=== PATIENT | female | born 1980 | race Caucasian/White ===

== ENCOUNTER 2020-01-08 13:10 | Emergency (ER) | payer OTHER, SELFPAY ==
[2020-01-08 13:57] VITALS: BP 111/59; PULSE 75; RESP 16; TEMP 37.4; O2SAT 98; BMI 28.7
--- NOTE | 2020-01-08 16:04 | ED.HEATRA ---
HPI - Head Injury General Chief complaint: Head Injury Stated complaint: HEAD INJ AT WORK Time Seen by Provider: 01/08/20 16:04 Source: patient Mode of arrival: ambulatory Limitations: no limitations History of Present Illness HPI Narrative: 39 yo female not on AC therapy struck head at work no LOC, the next day developed headache and photophobia with nausea - no fevers, no prior injuries or headaches, gradual onset MD Complaint: head injury Mechanism of Injury: work related injury Place: work Loss of Consciousness: no Location of injury: frontal Severity: moderate Quality: throbbing Radiation: none Other Injuries: none Context: other (no AC therapy) Associated symptoms: nausea Related Data Allergies Allergy/AdvReac Type Severity Reaction Status Date / Time Penicillins [PENICILLINS] Allergy Severe SHORTNESS Verified 01/08/20 14:07 OF BREATH Amoxicillin Allergy Unknown Shortness Uncoded 01/08/20 14:07 of Breath Penicillin Allergy Unknown Shortness Uncoded 01/08/20 14:07 of Breath Review of Systems Review of Systems: Constitutional : No Fever, No Chills, No Fatigue ENT/Mouth : No sore throat, No Rhinorrhea Eyes: No Eye Pain, No Swelling, No Redness, no change in vision Cardiovascular : No Chest Pain, No SOB, No Dyspnea on Exertion Respiratory : No Cough, No Sputum Gastrointestinal : + Nausea, + Vomiting, No Diarrhea, No abdominal Pain Genitourinary : No Dysuria, No Urinary Frequency Musculoskeletal : No joint pain, No Myalgias Skin : No Skin Lesions, No rash Neuro : No Weakness, No Numbness, No Dizziness, positive Headache Psych : No Anxiety/Panic, No Depression Heme/Lymph: No Bruising, No Bleeding,No Lymphadenopathy Endocrine : No Polyuria, No Polydipsia All other systems reviewed and are negative [facility] Past Medical History Medical History Left elbow fracture Patient denies significant medical history Psoriasiform dermatitis Right wrist injury Social History Social History (Updated 01/08/20 @ 16:12 by Sruthi Ortiz DO) Smoking Status: Never smoker Substance Use Type: Marijuana Substance Use Frequency: Occasionally Advance Directives: No Advance Directives Information Provided: No Physical Exam Vital Signs and I&O and Narrative: Vital Signs and I&O: Vital Signs Temp 99.4 F 01/08/20 13:57 Pulse 75 01/08/20 13:57 Resp 16 01/08/20 13:57 BP 111/59 L 01/08/20 13:57 Pulse Ox 98 01/08/20 13:57 Intake & Output 01/07/20 01/08/20 01/08/20 18:59 06:59 18:59 Weight 71.271 kg Body Mass Index 28.7 Appearance: Alert. Oriented X3. No acute distress. Eyes: Pupils equal, round and reactive to light. ENT: Pharynx normal. Neck: Normal inspection. Neck supple. no meningeal signs CVS: Normal heart rate and rhythm. Pulses normal. Respiratory: No respiratory distress. Breath sounds normal. Abdomen: Soft and nontender. Skin: Skin warm and dry. Normal skin color. Normal skin turgor. Extremities: No lower extremity edema. Normal range of motion Neuro: Oriented X 3. No motor deficit. No sensory deficit. Course Course Course Narrative: signed out to Dr. Pereira pending workup MDM - Head Injury MDM Narrative Medical decision making narrative: patient struck head at work at that time no LOC, no AC therapy, no fevers or meningeal symptoms this occurred on Tuesday but at this time c/o worsening pain since Tuesday started at rest, neurologically intact at this time will need CT head or injury, doubt [employer] infection, pain control, dispo per results and findings Discharge Plan Discharge Clinical Impression: Closed head injury Qualifiers: Encounter type: initial encounter Qualified Code(s): S09.90XA - Unspecified injury of head, initial encounter
--- NOTE | 2020-01-08 16:05 | CT_ITS ---
EXAMINATION: CT HEAD WITHOUT CONTRAST CLINICAL INFORMATION: Headache COMPARISON: None TECHNIQUE: Contiguous axial imaging was performed from the skull base to vertex without intravenous administration of contrast. This CT examination was performed using dose optimization techniques as appropriate, variously including the following: *Automated exposure control *Adjustment of mA and/or kV according to patient size (this includes techniques or standardized protocols for targeted exams where dose is matched to indication/reason for exam; i.e. extremities or head) *Use of iterative reconstruction technique DLP: 562 mGy-cm FINDINGS: There is no evidence of acute intracranial hemorrhage or territorial infarction. No abnormal mass effect or midline shift is seen. Higgins to white matter differentiation is well preserved. No extra-axial fluid collections are identified. The ventricles are normal in size. There is no abnormal attenuation within the brain parenchyma. The osseous structures and soft tissues are normal. There is near complete opacification of the sphenoid sinus. Mastoid air cells are well-developed and clear. No maxillary sinus air-fluid levels. Mild ethmoid mucosal thickening. IMPRESSION: No acute intracranial pathology. Sinus disease.
[2020-01-08] MEDS: 0.9 % Sodium Chloride 1,000 ML 999 ML IVCONT (16:35)
[2020-01-08] MEDS: Metoclopramide HCl 10 MG/2 ML VIAL 5 MG IVPUSH (16:36)
[2020-01-08] MEDS: Acetaminophen 325 MG TABLET 650 MG PO (16:36)
[2020-01-08] MEDS: diphenhydrAMINE HCL 50 MG/ML VIAL 25 MG IVPUSH (16:37)
[2020-01-08 16:44] LABS: MANUAL DIFF FLAG NO
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
[2020-01-08 16:49] LABS: Basophils Percent Auto 0.2 % (0-2); Eosinophils Absolute Auto 0.1 X10*3/uL (0.0-0.4); Eosinophils Percent Auto 0.7 % (0-4); Hematocrit 41.2 % (37-47); Hemoglobin 13.3 g/dl (12.0-16.0); Imm Gran Abs Auto 0.01 X10*3/uL (0.00-0.03); Imm Gran Pct Auto 0.1 % (0.0-0.4); Lymphocytes Percent Auto 23.9 % (20-40); Mean Corpuscular HGB Conc 32.3 g/dl (31.0-35.0); Mean Corpuscular Hemoglobin 27.3 pg (27.0-33.0); Mean Corpuscular Volume 84.4 fL (80-98); Mean Platelet Volume 10.5 fL (9.4-12.3); Monocytes Absolute Auto 0.6 X10*3/uL (0.1-1.2); Monocytes Percent Auto 6.5 % (2-11); Neutrophils Absolute Auto 5.8 X10*3/uL (2.0-8.3); Neutrophils Percent Auto 68.6 % (45-73); Platelet Count 274 X10*3/uL (160-400); Red Blood Count 4.88 X10*6/uL (4.20-5.50); Red Cell Distribution Width 12.8 % (11.0-16.0); White Blood Count 8.4 X10*3/uL (4.8-10.8)
[2020-01-08 16:51] LABS: Glucose Urine UA NEG (NEG); Leukocyte Esterase Urine NEG (NEG); Nitrite Urine NEG (NEG); PH 7.5 (5.0-8.0); Urine Blood NEG (NEG); Urine Ketones NEG (NEG); Urine Protein NEG (NEG-TRACE)
[2020-01-08 16:55] LABS: UPreg QC Valid YES; Urine Pregnancy NEGATIVE (NEGATIVE)
[2020-01-08 16:56] LABS: Appearance Urine CLEAR; Color Urine YELLOW
[2020-01-08 17:09] VITALS: BP 108/55; PULSE 63; RESP 14; TEMP 36.7; O2SAT 100
[2020-01-08 17:10] LABS: Anion Gap 12 (12-20); Blood Urea Nitrogen 15 mg/dL (9-16); Calcium 9.2 mg/dL (8.4-10.2); Carbon Dioxide 27 mmol/L (22-29); Chloride 105 mmol/L (96-108); Estimated Glomerular Filt Rate > 60; Glucose Random 102 mg/dL (60-115); Magnesium 2.1 mg/dL (1.6-2.6); Potassium 3.7 mmol/l (3.3-5.1); Sodium 140 mmol/L (135-145)
[2020-01-08 17:11] LABS: RBC Urine 0 /HPF (0); Squamous Epithelial Cell Urine 4+ /LPF; WBC Urine 0 /HPF (0-4)
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
== END 2020-01-08 19:12 | disposition home or self-care (01) ==
PROVIDERS: Emergency Medicine; Emergency Provider Internal Medicine
DX: S09.90XA Unspecified injury of head, initial encounter (principal); R11.0 Nausea; G44.309 Post-traumatic headache, unspecified, not intractable; Y29.XXXA Contact with blunt object, undetermined intent, initial encounter; Y93.9 Activity, unspecified; Y92.9 Unspecified place or not applicable; Y99.0 Civilian activity done for income or pay
CPT/HCPCS: 36415; 70450; 80048; 81001; 81003; 81025; 83735; 85025; 96361; 96372; 96374; 96375; 99284; J1200; J2765; J3030

== ENCOUNTER 2020-04-24 10:13 | Outpatient (REF) | payer OTHER, SELFPAY ==
[2020-04-24 10:45] LABS: MANUAL DIFF FLAG NO
[2020-04-24 10:49] LABS: Basophils Percent Auto 0.6 % (0-2); Eosinophils Absolute Auto 0.1 X10*3/uL (0.0-0.4); Eosinophils Percent Auto 1.3 % (0-4); Hematocrit 39.8 % (37-47); Hemoglobin 12.9 g/dl (12.0-16.0); Imm Gran Abs Auto 0.01 X10*3/uL (0.00-0.03); Imm Gran Pct Auto 0.1 % (0.0-0.4); Lymphocytes Absolute Auto 1.9 X10*3/uL (1.2-4.9); Lymphocytes Percent Auto 27.7 % (20-40); Mean Corpuscular HGB Conc 32.4 g/dl (31.0-35.0); Mean Corpuscular Hemoglobin 27.9 pg (27.0-33.0); Mean Platelet Volume 10.5 fL (9.4-12.3); Monocytes Absolute Auto 0.4 X10*3/uL (0.1-1.2); Neutrophils Absolute Auto 4.5 X10*3/uL (2.0-8.3); Neutrophils Percent Auto 64.3 % (45-73); Platelet Count 297 X10*3/uL (160-400); Red Blood Count 4.63 X10*6/uL (4.20-5.50); Red Cell Distribution Width 12.6 % (11.0-16.0)
[2020-04-24 11:21] LABS: Alanine Aminotransferase 109 U/L (0-31); Albumin Level 4.1 g/dL (3.5-5.0); Alkaline Phosphatase 83 U/L (39-117); Anion Gap 12 (12-20); Aspartate Amino Transferase 33 U/L (5-31); Bilirubin Total 0.3 mg/dL (0.0-1.0); Blood Urea Nitrogen 15 mg/dL (9-16); Calcium 9.4 mg/dL (8.4-10.2); Carbon Dioxide 27 mmol/L (22-29); Chloride 102 mmol/L (96-108); Estimated Glomerular Filt Rate > 60; Glucose Random 92 mg/dL (60-115); Potassium 4.1 mmol/l (3.3-5.1); Sodium 137 mmol/L (135-145); Total Protein 7.1 g/dL (6.5-8.0)
[2020-04-27 23:32] LABS: TS Negative Control Passed; TS Panel A 3; TS Panel B 1; TS Positive Control Passed; TSpotTB Negative (SeeBelow)
== END 2020-04-24 10:14 | disposition home or self-care (01) ==
LOC: HO.LAB 10:13
PROVIDERS: Visit Provider Physician Assistant Medical
DX: L40.0 Psoriasis vulgaris (principal)
CPT/HCPCS: 36415; 80053; 85025; 86481

== ENCOUNTER 2020-06-16 12:17 | Outpatient (REF) | payer OTHER, SELFPAY ==
[2020-06-16 13:12] LABS: MANUAL DIFF FLAG NO
[2020-06-16 13:18] LABS: Basophils Percent Auto 0.5 % (0-2); Eosinophils Absolute Auto 0.1 X10*3/uL (0.0-0.4); Eosinophils Percent Auto 1.5 % (0-4); Hematocrit 40.6 % (37-47); Imm Gran Abs Auto 0.01 X10*3/uL (0.00-0.03); Imm Gran Pct Auto 0.2 % (0.0-0.4); Lymphocytes Absolute Auto 1.7 X10*3/uL (1.2-4.9); Lymphocytes Percent Auto 27.6 % (20-40); Mean Corpuscular Hemoglobin 27.5 pg (27.0-33.0); Mean Corpuscular Volume 85.8 fL (80-98); Mean Platelet Volume 11.2 fL (9.4-12.3); Monocytes Absolute Auto 0.4 X10*3/uL (0.1-1.2); Monocytes Percent Auto 6.3 % (2-11); Neutrophils Absolute Auto 3.9 X10*3/uL (2.0-8.3); Neutrophils Percent Auto 63.9 % (45-73); Platelet Count 275 X10*3/uL (160-400); Red Blood Count 4.73 X10*6/uL (4.20-5.50); Red Cell Distribution Width 12.1 % (11.0-16.0); White Blood Count 6.2 X10*3/uL (4.8-10.8)
[2020-06-16 13:50] LABS: Alanine Aminotransferase 290 U/L (0-31); Albumin Level 4.1 g/dL (3.5-5.0); Alkaline Phosphatase 84 U/L (39-117); Anion Gap 11 (12-20); Aspartate Amino Transferase 203 U/L (5-31); Bilirubin Total 0.5 mg/dL (0.0-1.0); Blood Urea Nitrogen 12 mg/dL (9-16); Calcium 9.4 mg/dL (8.4-10.2); Carbon Dioxide 29 mmol/L (22-29); Chloride 104 mmol/L (96-108); Estimated Glomerular Filt Rate > 60; Glucose Random 87 mg/dL (60-115); Potassium 4.3 mmol/L (3.3-5.1); Sodium 140 mmol/L (135-145); Total Protein 7.1 g/dL (6.5-8.0)
[2020-06-16 14:09] LABS: TSH reflex Free T4 1.46 uIU/mL (0.32-4.0)
[2020-06-16 14:28] LABS: Erythrocyte Sedimentation Rate 18 MM/HR (0-20)
[2020-06-19 17:37] LABS: HIV RNA PCR Qn Copies <20 NOT DETECTED copies/mL (NOT DETECTED); HIV RNA PCR Qn Log Copies <1.30 NOT DETECTED (NOT DETECTED)
[2020-06-20 18:22] LABS: HCV Log PCR <1.18 NOT DETECTED Log IU/mL (NOT DETECTED); HepC Viral Load <15 NOT DETECTED IU/mL (NOT DETECTED)
== END 2020-06-16 12:18 | disposition home or self-care (01) ==
LOC: HO.LAB 12:17
PROVIDERS: PCP Family Medicine; Visit Provider Family Medicine
DX: R53.83 Other fatigue (principal); L40.9 Psoriasis, unspecified; Z86.19 Personal history of other infectious and parasitic diseases
CPT/HCPCS: 36415; 80053; 84443; 85025; 85652; 87522; 87536

== ENCOUNTER 2020-06-28 21:39 | Emergency (ER) | payer OTHER, SELFPAY ==
--- NOTE | ~2020-06-28 | XR_ITS ---
EXAMINATION: XR FOOT RT XR ANKLE RT CLINICAL INFORMATION: Pain and swelling COMPARISON: None. TECHNIQUE: 3 views of the right foot. 2 views of the right ankle FINDINGS: Ankle mortise intact. No fracture or dislocation seen. No soft tissue swelling. There is mild enthesopathy of the distal Achilles tendon attachment. No fracture or dislocation of the foot. Normal tarsal-metatarsal alignment. Small plantar calcaneal osteophyte is present. XR/XR foot RT min 3V IMPRESSION: No acute osseous abnormality of the right foot or ankle.
--- NOTE | ~2020-06-28 | XR_ITS ---
EXAMINATION: XR FOOT RT XR ANKLE RT CLINICAL INFORMATION: Pain and swelling COMPARISON: None. TECHNIQUE: 3 views of the right foot. 2 views of the right ankle FINDINGS: Ankle mortise intact. No fracture or dislocation seen. No soft tissue swelling. There is mild enthesopathy of the distal Achilles tendon attachment. No fracture or dislocation of the foot. Normal tarsal-metatarsal alignment. Small plantar calcaneal osteophyte is present. XR/XR ankle RT min 3V IMPRESSION: No acute osseous abnormality of the right foot or ankle.
[2020-06-28 21:46] VITALS: BP 124/66; PULSE 70; RESP 18; TEMP 36.7; O2SAT 100; BMI 29.2
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
[2020-06-29] MEDS: Ibuprofen 600 MG TABLET PO (00:55)
== END 2020-06-29 00:45 | disposition home or self-care (01) ==
PROVIDERS: Emergency Provider Student in an Organized Health Care Education/Training Program; PCP Family Medicine
DX: T25.191A Burn of first degree of multiple sites of right ankle and foot, initial encounter (principal); T25.192A Burn of first degree of multiple sites of left ankle and foot, initial encounter; T31.0 Burns involving less than 10% of body surface; M79.672 Pain in left foot; M79.671 Pain in right foot; M25.572 Pain in left ankle and joints of left foot; M25.571 Pain in right ankle and joints of right foot; L40.9 Psoriasis, unspecified; Y63.5 Inappropriate temperature in local application and packing; Y82.9 Unspecified medical devices associated with adverse incidents; Y93.9 Activity, unspecified; Y92.009 Unspecified place in unspecified non-institutional (private) residence as the place of occurrence of the external cause; Y99.9 Unspecified external cause status; Z79.899 Other long term (current) drug therapy
CPT/HCPCS: 73610; 73630; 99284

== ENCOUNTER 2023-02-28 07:54 | Emergency (ER) | payer MEDICAID, SELFPAY ==
--- NOTE | 2023-02-28 08:06 | ED_ITS ---
HPI - General Adult General Chief complaint: Back Pain/Injury Stated complaint: Back pain-L leg/arm numbness Time Seen by Provider: 02/28/23 08:06 Source: patient Mode of arrival: ambulatory Limitations: no limitations History of Present Illness HPI narrative: Patient is a 42 year old assigned female at with no reported medical history presenting to the emergency department today with right sided low back pain, intermittent tingling in the left hand, and intermittent tingling in the left foot. Patient states that over the last few days she has had right sided low back pain with numbness and tingling intermittently to the left hand and left foot. Patient states that sitting in certain positions can make the left foot tingling worse. Patient states that her left hand tingling is worse at night. Patient states that approximately 14 years ago she had something similar and was diagnosed with a pinched nerve for which she was offered surgery or PT. Patient states that she opted for PT and it got better. Patient states that the episode 14 years ago did not have associated back pain. Patient denies any dizziness, lightheadedness, abdominal pain, nausea, vomiting, fever, chills, blurry vision, double vision, loss of vision, chest pain, difficulty breathing, shortness of breath, night sweats, pain with urination, increased urinary frequency, increased urinary urgency, blood in her urine or stool, syncope or a near syncopal episode, recent trauma or falls, bowel incontinence, bladder incontinence, bowel retention, bladder retention, or any other complaints at this time. Onset (ago): day(s) Location: back (right low back) and left (hand and foot) Relieving factors: none Exacerbating factors: none Associated symptoms: denies other symptoms Treatments prior to arrival: NSAID Related Data Previous Rx's Medication Instructions Recorded ocfwvsyddy-nvxuzlkwvukeb-aeifpvvh 1 cap PO Q6H PRN headache #20 caps 01/08/20 50 mg-300 mg-40 mg capsule (Fioricet) sumatriptan succinate 50 mg tablet See Rx Instructions PO .COMPLEX 01/08/20 (Imitrex) #10 tabs oxycodone 5 mg tablet 5 mg PO Q8H PRN pain #10 tabs 06/28/20 ibuprofen 600 mg tablet 600 mg PO Q6H PRN pain #60 tabs 06/29/20 cyclobenzaprine 5 mg tablet 5 mg PO TID PRN muscle spasm 7 02/28/23 days #21 tabs prednisone 20 mg tablet 20 mg PO DAILY 7 days #7 tabs 02/28/23 Allergies Allergy/AdvReac Type Severity Reaction Status Date / Time Penicillins [PENICILLINS] Allergy Severe SHORTNESS Verified 06/28/20 21:44 OF BREATH Amoxicillin Allergy Unknown Shortness Uncoded 01/08/20 14:07 of Breath Penicillin Allergy Unknown Shortness Uncoded 01/08/20 14:07 of Breath Review of Systems 2 Constitutional: Constitutional: Reports no additional constitutional complaints, Denies chills, Denies fever(s) and Denies night sweats Eyes: Eyes: Reports no additional eye complaints, Denies blurry vision, Denies change in vision, Denies diplopia, Denies eye discharge, Denies loss of vision and Denies eye pain ENT: Denies dizziness Cardiovascular: Cardiovascular: Reports no additional cardiovascular complaints, Denies chest pain, Denies lightheadedness, Denies Loss of Consciousness and Denies dyspnea Respiratory: Respiratory: Reports no additional respiratory complaints and Denies dyspnea Gastrointestinal: Gastrointestinal: Reports no additional gastrointestinal complaints, Denies abdominal pain, Denies melena, Denies hematochezia, Denies change in bowel habits and Denies change in stool character Genitourinary: Genitourinary: Denies hematuria, Denies urinary frequency, Denies dysuria, Denies urinary incontinence, Denies urinary hesitancy and Denies urinary urgency Musculoskeletal: Musculoskeletal: Reports no additional musculoskeletal complaints, Reports back pain (right sided), Reports numbness (of left hand and foot) and Reports tingling (of left hand and foot) Neurologic: Denies dizziness, Denies loss of vision, Reports numbness (of left hand and foot) and Reports tingling (of left hand and foot) Psychiatric: Psychiatric: Reports no additional psychiatric complaints Endocrine: Endocrine: Reports no additional endocrine complaints Hematologic/Lymphatic: Hematologic/Lymphatic: Reports no additional hematologic/lymphatic complaints Allergic/Immunologic: Allergic/Immunologic: Reports no additional allergic/immunologic complaints PMFSH Past Medical History Attestation statement: The following information was validated with the patient. Source: old records reviewed and nursing notes reviewed Medical History Left elbow fracture Right wrist injury Psoriasiform dermatitis Patient denies significant medical history Social History Alcohol intake: current Alcohol intake frequency: a few times a month Smoked in Last 30 Days: No Use of substances other than those prescribed or required for medical reasons: Yes Substance Use Type: Marijuana Substance Use Frequency: Occasionally Advance Directives: No Advance Directives Information Provided: No Physical Exam ED Vital Signs: Vital Signs - 24 hr 02/28/23 08:12 02/28/23 10:45 Temperature 98.6 F Pulse Rate 64 64 Respiratory Rate 16 19 Blood Pressure 137/84 110/55 L Pulse Oximetry 98 99 Oxygen Delivery Method Room Air Room Air BMI result Body Mass Index 27.5 Const General: cooperative, no acute distress, alert and awake Nutritional Appearance: well nourished Orientation/consciousness: patient oriented x3 Limitations: no limitations HENMT Head: Yes normal to inspection and Yes atraumatic Ears: hearing grossly normal bilaterally and external ears normal General nose exam: Normal external nose present, no nasal discharge noted and no epistaxis Face and sinus: Yes normal facial exam, No abrasion and No laceration Mouth: Normal oral and palatal mucosa present, no drooling and no muffled voice Eyes General: appearance normal, both eyes and all related structures Periorbital: periorbital findings normal Eyelids: Yes eyelids normal Conjunctivae: conjunctivae normal Pupils: Equal, round and reactive pupils present EOM: EOMs intact bilaterally Neck Neck: Yes normal visual inspection, Yes full ROM and Yes no lymphadenopathy Chest Chest palpation & inspection: normal inspection of the chest Resp Effort & Inspection: normal respiratory effort and able to speak in complete sentences GI Inspection: Yes normal to inspection Neuro General: patient oriented x3 and moves all extremities Cranial nerves: Yes Equal, round and reactive pupils present Cognition (Neuro): normal cognition Motor exam (neuro): 5/5 motor strength present throughout Sensory Exam: Normal double simultaneous stimulation for sensation Coordination: zjpkaa-at-flrg test normal Extrem General: Yes normal to inspection, Yes full ROM and Yes capillary refill normal Psych Appearance: grossly normal Mental Status: mental status grossly normal Affect: normal affect Attitude: cooperative Thought process: Normal thought process present Thought content: Normal thought content present Insight: Good insight present (Psych) Medications Administered Discontinued Medications Generic Name Dose Route Start Last Admin Trade Name Freq PRN Reason Stop Dose Admin Cyclobenzaprine HCl 5 mg 02/28/23 08:17 02/28/23 08:29 Cyclobenzaprine Hcl 5 Mg Tablet PO 02/28/23 08:18 5 mg ONCE ONE Administration Ketorolac Tromethamine 15 mg 02/28/23 08:17 02/28/23 08:29 Ketorolac Tromethamine 15 Mg/Ml Vial IM 02/28/23 08:18 15 mg ONCE ONE Administration Medical Decision Making Medical Decision Making [facility] Narrative: Patient is a 42 year old assigned female at with no reported medical history presenting to the emergency department today with right sided low back pain, left hand tingling, and left foot tingling. Patient's physical exam was unremarkable. Patient's blood work showed mild elevation of inflammation markers but was otherwise unremarkable. Patient's tick panel is pending. I explained my physical exam findings as well as all test results to the patient. I answered all questions asked by the patient. Patient received IM Toradol and PO Flexeril which she stated helped her symptoms significantly. Patient's clinical presentation is most consistent with paresthesias and low back pain. I do not believe the low back pain is related to the paresthesias given the distrubition of symptoms. I stressed the importance of the patient taking her medication as prescribed. I stressed the importance of the patient following up with her primary care provider, a fire fighting equipment specialist, and a neurologist. I stressed the importance of the patient returning to the emergency department immediately if her symptoms were to worsen or if she were to develop any dizziness, shortness of breath, difficulty breathing, chest pain, blurry vision, loss of vision, nausea, vomiting, abdominal pain, fever, chills, back pain, or any other complaints. Patient verbalized agreement and understanding with this treatment plan and discharge. Differential Diagnosis Differential Diagnoses: The differential diagnosis associated with the presentation includes Electrolyte imbalance Carpal tunnel syndrome Low back pain Muscle spasm Claudication Admission/Observation Consideration of admission/observation: Escalation of care including admission/observation considered Patient would have been admitted to the hospital had her work up had any findings where hospital admission was appropriate and her clinical presentation warranted hospital admission. Lab Data [facility] Lab Attestation statement: I reviewed the patient's lab results. My interpretation of these results are in the [facility] Rationale portion of this note. 02/28/23 08:53 02/28/23 08:53 Labs: Lab Results 02/28/23 Range/Units 08:53 WBC 10.4 (4.8-10.8) X10*3/uL RBC 4.64 (4.20-5.50) X10*6/uL Hgb 13.2 (12.0-16.0) g/dl Hct 40.1 (37.0-47.0) % MCV 86.4 (80.0-98.0) fL MCH 28.4 (27.0-33.0) pg MCHC 32.9 (31.0-35.0) g/dl RDW 13.2 (11.0-16.0) % Plt Count 260 (160-400) X10*3/uL MPV 10.9 (9.4-12.3) fL Immature Gran % (Auto) 0.2 (0.0-0.4) % Neut % (Auto) 74.0 H (45-73) % Lymph % (Auto) 18.2 L (20-40) % [place] % (Auto) 6.8 (2-11) % Eos % (Auto) 0.4 (0-4) % Baso % (Auto) 0.4 (0-2) % Lymph # (Auto) 1.9 (1.2-4.9) X10*3/uL [place] # (Auto) 0.7 (0.1-1.2) X10*3/uL Eos # (Auto) 0.0 (0.0-0.4) X10*3/uL Baso # (Auto) 0.0 (0.0-0.2) X10*3/uL Abs Immat Gran (auto) 0.02 (0.00-0.03) X10*3/uL Absolute Neuts (auto) 7.7 (2.0-8.3) x10*3/uL Absolute Nucleated RBC 0.000 (0.0-0.012) X10*3/uL Nucleated RBC % (auto) 0.0 (0.0-0.2) /100WBC ESR 23 H (0-20) MM/HR Sodium 137 (135-145) mmol/L Potassium 4.1 (3.3-5.1) mmol/L Chloride 104 (96-108) mmol/L Carbon Dioxide 27 (22-29) mmol/L Anion Gap 10 L (12-20) BUN 12 (9-16) mg/dL Creatinine 0.77 (0.5-1.4) mg/dL Estim Creat Clear Calc 97.3 Estimated GFR > 60 Random Glucose 97 (60-115) mg/dL Calcium 9.8 (8.4-10.2) mg/dL Total Bilirubin 0.5 (0.0-1.0) mg/dL AST 18 (5-31) U/L ALT 34 H (0-31) U/L Alkaline Phosphatase 79 (39-117) U/L C-Reactive Protein 5.75 H (< or = 0.50) mg/dL Total Protein 7.8 (6.5-8.0) g/dL Albumin 4.3 (3.5-5.0) g/dL Beta HCG, Quant < 2 mIU/mL Prescription Management I considered prescription management with: Pain Medication (patient prescribed pain medication.) Discharge Plan Discharge Clinical Impression: Paresthesia, Low back pain Patient Disposition: Home, Self-Care Instructions: Paresthesia (ED), Back Pain (ED) Additional Instructions: Follow up with your primary care provider, a fire fighting equipment specialist, and a neurologist. Return to the emergency department immediately if your symptoms worsen or if you develop any dizziness, shortness of breath, difficulty breathing, chest pain, blurry vision, loss of vision, nausea, vomiting, abdominal pain, fever, chills, back pain, or any other complaints. Prescriptions: New prednisone 20 mg tablet 20 mg PO DAILY 7 Days Qty: 7 0RF cyclobenzaprine 5 mg tablet 5 mg PO TID PRN (Reason: muscle spasm) 7 Days Qty: 21 0RF No Action oxycodone 5 mg tablet 5 mg PO Q8H PRN (Reason: pain) Qty: 10 0RF ibuprofen 600 mg tablet 600 mg PO Q6H PRN (Reason: pain) Qty: 60 0RF sumatriptan succinate [Imitrex] 50 mg tablet See Rx Instructions .ROUTE .COMPLEX Qty: 10 0RF Rx Instructions: take 1 tab at onset of headache; if no relief may repeat 1 tab after at least 2 hrs; max = 2 tabs/24 hr xefgisrwlz-revtpglmuwhtc-dpzg [Fioricet] 50-300-40 mg capsule 1 cap PO Q6H PRN (Reason: headache) Qty: 20 0RF Referrals: [facility] [Provider Group] (Call to establish and follow up with a neurologist.) [facility] [Provider Group] (Call to establish and follow up with a fire fighting equipment specialist.) Maria Alejandra Sharif FNP [Primary Care Provider] - Stand Alone Forms: Work/School Release Interventions: ED Discharge Assessment Last Done: 02/28/23 10:47 Discharge Date/Time: 02/28/23 10:48 Print Language: Italian
[2023-02-28 08:12] VITALS: BP 137/84; PULSE 64; RESP 16; TEMP 37; O2SAT 98; BMI 27.5
[2023-02-28] MEDS: Cyclobenzaprine HCl 5 MG TABLET PO (08:29)
[2023-02-28] MEDS: Ketorolac Tromethamine 15 MG/ML VIAL IM (08:29)
[2023-02-28 08:57] LABS: MANUAL DIFF FLAG NO
[2023-02-28 09:21] LABS: Alanine Aminotransferase 34 U/L (0-31); Albumin Level 4.3 g/dL (3.5-5.0); Alkaline Phosphatase 79 U/L (39-117); Anion Gap 10 (12-20); Aspartate Amino Transferase 18 U/L (5-31); Bilirubin Total 0.5 mg/dL (0.0-1.0); Blood Urea Nitrogen 12 mg/dL (9-16); C Reactive Protein 5.75 mg/dL (< or = 0.50); Calcium 9.8 mg/dL (8.4-10.2); Carbon Dioxide 27 mmol/L (22-29); Chloride 104 mmol/L (96-108); Creatinine Clr Calc Pharmacy 97.3; Estimated Glomerular Filt Rate > 60; Glucose Random 97 mg/dL (60-115); Potassium 4.1 mmol/L (3.3-5.1); Sodium 137 mmol/L (135-145); Total Protein 7.8 g/dL (6.5-8.0)
[2023-02-28 09:28] LABS: Basophils Percent Auto 0.4 % (0-2); Eosinophils Percent Auto 0.4 % (0-4); HCG Quantitative < 2 mIU/mL; Hematocrit 40.1 % (37.0-47.0); Hemoglobin 13.2 g/dl (12.0-16.0); Imm Gran Abs Auto 0.02 X10*3/uL (0.00-0.03); Imm Gran Pct Auto 0.2 % (0.0-0.4); Lymphocytes Absolute Auto 1.9 X10*3/uL (1.2-4.9); Lymphocytes Percent Auto 18.2 % (20-40); Mean Corpuscular HGB Conc 32.9 g/dl (31.0-35.0); Mean Corpuscular Hemoglobin 28.4 pg (27.0-33.0); Mean Corpuscular Volume 86.4 fL (80.0-98.0); Mean Platelet Volume 10.9 fL (9.4-12.3); Monocytes Absolute Auto 0.7 X10*3/uL (0.1-1.2); Monocytes Percent Auto 6.8 % (2-11); Neutrophils Absolute Auto 7.7 x10*3/uL (2.0-8.3); Platelet Count 260 X10*3/uL (160-400); Red Blood Count 4.64 X10*6/uL (4.20-5.50); Red Cell Distribution Width 13.2 % (11.0-16.0); White Blood Count 10.4 X10*3/uL (4.8-10.8)
[2023-02-28 09:50] LABS: Erythrocyte Sedimentation Rate 23 MM/HR (0-20)
[2023-02-28 10:45] VITALS: BP 110/55; PULSE 64; RESP 19; O2SAT 99
[2023-03-01 22:18] LABS: A. Phagocytphilium DNA,RT-PCR NOT DETECTED (NOT DETECTED); Babesia Microti DNA, RT-PCR NOT DETECTED (NOT DETECTED); Borrelia Miyamotoi,DNA RT-PCR NOT DETECTED (NOT DETECTED); E.Chaffeensis DNA RT-PCR NOT DETECTED (NOT DETECTED); Lyme(Borrelia ssp)DNA RT-PCR NOT DETECTED (NOT DETECTED)
== END 2023-02-28 10:48 | disposition home or self-care (01) ==
PROVIDERS: Physician Assistant Medical; Emergency Provider Emergency Medicine; PCP Nurse Practitioner Family
DX: R20.2 Paresthesia of skin (principal); M54.50 Low back pain, unspecified
CPT/HCPCS: 36415; 80053; 84702; 85025; 85652; 86140; 87468; 87469; 87478; 87484; 87798; 96372; 99284; J1885

== ENCOUNTER 2023-11-29 15:30 | Emergency (ER) | payer OTHER, SELFPAY ==
--- NOTE | ~2023-11-29 | XR_ITS ---
EXAMINATION: XR HAND, LEFT CLINICAL INFORMATION: Swelling/pain COMPARISON: None available. TECHNIQUE: PA, lateral, and oblique views of the left hand. FINDINGS: The bones and soft tissues are normal. No fracture. Alignment is anatomic. Joint spaces are maintained. No erosions or soft tissue calcifications. XR/XR hand LT min 3V IMPRESSION: Normal left hand. Electronically signed by: Jill David MD 11/29/2023 06:50 PM EDT
[2023-11-29 15:54] VITALS: BP 133/59; PULSE 73; RESP 18; TEMP 36.9; O2SAT 98; BMI 29.8
--- NOTE | 2023-11-29 15:54 | ED_ITS ---
HPI - General Adult General Chief complaint: General Medical Stated complaint: Finger swelling Time Seen by Provider: 11/29/23 16:41 Source: patient Mode of arrival: ambulatory Limitations: no limitations History of Present Illness ED Provider: Sherri Lambert PA-C HPI narrative: 43-year-old female with history of psoriasis that is currently not being treated presents to the ER for evaluation of atraumatic left index finger pain and swelling for the last 2 weeks. She states she is going through insurance changes right now and just lost her PCP. She had to change her stamping machine operator because of this and is due to see a new stamping machine operator December 14. She is hoping to get on a biologic agent for her psoriasis. She reports index finger has been swollen and unable to bend for the last 2 weeks. She denies any injury. No redness or warmth to the finger. No recent manicure or hang nail, other nail manipulation. She has been taking various NSAIDs without any relief. Patient also reports left ankle pain and swelling, she just had an MRI for this last week and was hoping for the results soon. She reports chronic daily small joint pains in her wrists and fingers, occasionally in her hips and shoulders as well. She does not have a formal diagnosis of psoriatic arthritis but is concerned that this is what this may be. MD complaint: Left index finger swelling and pain Onset (ago): week(s) (2) Location: left and upper extremity Radiation: distal Severity: severe Severity scale (1-10): 8 Quality: aching Pain Consistency: constant Relieving factors: rest Exacerbating factors: movement Associated symptoms: denies other symptoms Treatments prior to arrival: none Related Data Previous Rx's ?Medication ?Instructions ?Recorded izifiqpqjx-kojkwescjmhpl-syhdperp 1 cap PO Q6H PRN headache #20 caps 01/08/20 50 mg-300 mg-40 mg capsule (Fioricet) sumatriptan succinate 50 mg tablet See Rx Instructions PO .COMPLEX 01/08/20 (Imitrex) #10 tabs oxycodone 5 mg tablet 5 mg PO Q8H PRN pain #10 tabs 06/28/20 ibuprofen 600 mg tablet 600 mg PO Q6H PRN pain #60 tabs 06/29/20 cyclobenzaprine 5 mg tablet 5 mg PO TID PRN muscle spasm 7 02/28/23 days #21 tabs prednisone 20 mg tablet 20 mg PO DAILY 7 days #7 tabs 02/28/23 oxycodone 5 mg tablet 5 mg PO Q8H PRN severe pain (scale 11/29/23 score 7-10) #6 tabs prednisone 10 mg tablets in a dose See Taper PO DAILY #30 ea 11/29/23 pack Allergies Allergy/AdvReac Type Severity Reaction Status Date / Time Penicillins [PENICILLINS] Allergy Severe SHORTNESS Verified 11/29/23 15:57 OF BREATH Amoxicillin Allergy Unknown Shortness Uncoded 01/08/20 14:07 of Breath Penicillin Allergy Unknown Shortness Uncoded 01/08/20 14:07 of Breath Review of Systems 2 Review of Systems: Yes all other systems are reviewed and are negative [facility] Past Medical History Medical History Left elbow fracture Right wrist injury Psoriasiform dermatitis Patient denies significant medical history Social History Social History Alcohol intake: current Alcohol intake frequency: a few times a month Substance Use Type: Marijuana Advance Directives: No Advance Directives Information Provided: Yes Do you have a plan to hurt others: No Plan Physical Exam ED Vital Signs: Vital Signs - 24 hr 11/29/23 15:54 11/29/23 19:06 Temperature 98.4 F 98.4 F Pulse Rate 73 73 Respiratory Rate 18 18 Blood Pressure 133/59 L 133/59 L Pulse Oximetry 98 98 Oxygen Delivery Method Room Air Room Air BMI result Body Mass Index 29.8 Appearance: Alert. Oriented X3. No acute distress. Head: normocephalic, atraumatic. Eyes: Pupils equal, round and reactive to light. ENT: Pharynx normal. No tonsillar swelling or exudate. Neck: Normal inspection. Neck supple. CVS: Normal heart rate and rhythm. Pulses normal. Respiratory: No respiratory distress. Breath sounds normal. Abdomen: Soft and nontender. +BS x4 Skin: Skin warm and dry. Normal skin color. Normal skin turgor. No rashes. Extremities: Left ankle with mild generalized swelling, tenderness of both the medial and lateral malleolus which is improved per patient report. No redness or warmth to the left ankle. Full range of motion with some discomfort. Left index finger with swelling from the MCP to the distal portion of the finger with limited range of motion due to swelling, no erythema or warmth. Neurovascularly intact. Neuro/psych: Oriented X 3. No motor deficit. No sensory deficit. CN II-XII intact. Normal speech and cognition. Course Course Course Narrative: This is an RME done by ABEBE Badillo: Additional HPI, ROS, PE not included below will be deferred to primary provider. 43 year old female with concerns of L index finger pain (6/10) and swelling x past few days. She has been attempting to ice the area with no relief. Plan - imaging, labs Appearance: Alert.? Oriented X3.? No acute cardiopulmonary distress distress.? Head: Normocephalic, atraumatic, no step-offs or deformities Neck: Normal inspection.? Neck supple.? CVS: Pulses normal.? Respiratory: No respiratory distress.? Abdomen: Soft and nontender.? Skin: ? Normal skin color. Extremities: 5/5 strength to bilateral upper and lower extremities; + painful and swollen L index finger with limited ROM Neuro: Oriented X 3.? No motor deficit.? No sensory deficit. Medical Decision Making Medical Decision Making [facility] Narrative: 43-year-old female with a history of untreated psoriasis presents to the ER for evaluation of left index finger swelling for the last 2 weeks. The finger is not red or hot, low clinical suspicion for tenosynovitis. She has other arthralgias that are chronic. Suspect she has underlying inflammatory arthritis and would benefit from prednisone. Will send a prednisone taper to her pharmacy and some short course of narcotic for severe pain she states the pain in her fingers not allowing her to sleep well. She has been on various NSAIDs with no relief. She is trying to getting with a new candlemaking laborer and has follow-up with Dermatology coming up. Her lab workup today was reassuring with no leukocytosis, chronic and stable CRP in the 5 range. will d/c home with prednisone and pain control. needs to see her derm and rheum. return precautions discussed, no evidence of infection at this time Differential Diagnosis Differential Diagnoses: The differential diagnosis associated with the presentation includes Tenosynovitis, cellulitis, paronychia, fracture, psoriatic arthritis, other inflammatory arthritis Lab Data [facility] Lab Attestation statement: I reviewed the patient's lab results. No leukocytosis 11/29/23 16:16 11/29/23 16:16 Labs: Lab Results 11/29/23 Range/Units 16:16 WBC 7.3 (4.8-10.8) X10*3/uL RBC 4.40 (4.20-5.50) X10*6/uL Hgb 12.2 (12.0-16.0) g/dl Hct 37.1 (37.0-47.0) % MCV 84.3 (80.0-98.0) fL MCH 27.7 (27.0-33.0) pg MCHC 32.9 (31.0-35.0) g/dl RDW 12.1 (11.0-16.0) % Plt Count 379 D (160-400) X10*3/uL MPV 10.4 (9.4-12.3) fL Immature Gran % (Auto) 0.3 (0.0-0.4) % Neut % (Auto) 59.7 (45-73) % Lymph % (Auto) 29.7 (20-40) % [place] % (Auto) 7.7 (2-11) % Eos % (Auto) 1.9 (0-4) % Baso % (Auto) 0.7 (0-2) % Lymph # (Auto) 2.2 (1.2-4.9) X10*3/uL [place] # (Auto) 0.6 (0.1-1.2) X10*3/uL Eos # (Auto) 0.1 (0.0-0.4) X10*3/uL Baso # (Auto) 0.1 (0.0-0.2) X10*3/uL Abs Immat Gran (auto) 0.02 (0.00-0.03) X10*3/uL Absolute Neuts (auto) 4.4 (2.0-8.3) x10*3/uL Absolute Nucleated RBC 0.000 (0.0-0.012) X10*3/uL Nucleated RBC % (auto) 0.0 (0.0-0.2) /100WBC ESR 45 H (0-20) MM/HR Sodium 139 (135-145) mmol/L Potassium 4.2 (3.3-5.1) mmol/L Chloride 105 (96-108) mmol/L Carbon Dioxide 26 (22-29) mmol/L Anion Gap 12 (12-20) BUN 15 (9-16) mg/dL Creatinine 0.89 (0.5-1.4) mg/dL Estim Creat Clear Calc 80.5 Estimated GFR > 60 Random Glucose 97 (60-115) mg/dL Uric Acid 3.9 (2.4-5.7) mg/dL Calcium 9.9 (8.4-10.2) mg/dL Total Bilirubin 0.3 (0.0-1.0) mg/dL AST 17 (5-31) U/L ALT 30 (0-31) U/L Alkaline Phosphatase 98 (39-117) U/L C-Reactive Protein 5.63 H (< or = 0.50) mg/dL Total Protein 7.7 (6.5-8.0) g/dL Albumin 4.2 (3.5-5.0) g/dL Independent Interpretation I performed an independent interpretation of an: Plain X-Ray Interpretation: no acute fracture or bony lesion Radiology Impression Discussion of test interpretation with radiology: I have reviewed the radiologist's reading. External Record Review External record reviewed: Office record, Outpatient record, Prior outpatient labs and Prior outpatient radiology Prescription Management I considered prescription management with: Pain Medication and Antibiotic Chronic Conditions Patient?s care impacted by: Other (Psoriasis) Social Determinants Patient?s care significantly limited by Social Determinants of Health including: Other Social Determinant of Health (Insurance issues, lack of access to care) Critical Care Time Critical Care Time Critical Care Time: No Discharge Plan Discharge Clinical Impression: Arthritis Patient Disposition: Home, Self-Care Instructions: Arthritis (ED) Additional Instructions: Your lab work today did not show any evidence of infection Take the prescribed prednisone taper as directed, complete the entire course. Take this with food. Follow-up with your stamping machine operator as soon as possible as well as your, Sheather & primary care doctor Take the prescribed oxycodone as needed for severe pain only. Take Tylenol 1000 mg every 6-8 hours around the clock. If you develop new or worsening symptoms call 911 or come back to the ER for further evaluation. Prescriptions: New prednisone 10 mg tablets,dose pack See Taper PO DAILY Qty: 30 0RF Taper: Prednisone 40 mg daily for 3 Days and 0 Hour 30 mg daily for 3 Days and 0 Hour 20 mg daily for 3 Days and 0 Hour 10 mg daily for 3 Days and 0 Hour Rx Instructions: 40 mg Daily x3 days, 30 mg daily x3 days, 20 mg daily x3 days, 10 mg daily x3 days oxycodone 5 mg tablet 5 mg PO Q8H PRN (Reason: severe pain (scale score 7-10)) Qty: 6 0RF Rx Instructions: Partial Fill upon patient request. No Action oxycodone 5 mg tablet 5 mg PO Q8H PRN (Reason: pain) Qty: 10 0RF ibuprofen 600 mg tablet 600 mg PO Q6H PRN (Reason: pain) Qty: 60 0RF sumatriptan succinate [Imitrex] 50 mg tablet See Rx Instructions .ROUTE .COMPLEX Qty: 10 0RF Rx Instructions: take 1 tab at onset of headache; if no relief may repeat 1 tab after at least 2 hrs; max = 2 tabs/24 hr akxoraehwv-aawboqdaiaeau-ahoa [Fioricet] 50-300-40 mg capsule 1 cap PO Q6H PRN (Reason: headache) Qty: 20 0RF prednisone 20 mg tablet 20 mg PO DAILY 7 Days Qty: 7 0RF cyclobenzaprine 5 mg tablet 5 mg PO TID PRN (Reason: muscle spasm) 7 Days Qty: 21 0RF Interventions: ED Discharge Assessment Last Done: 11/29/23 19:06 Discharge Date/Time: 11/29/23 19:06 Print Language: Irish
[2023-11-29 16:21] LABS: MANUAL DIFF FLAG NO
[2023-11-29 16:27] LABS: Basophils Absolute Auto 0.1 X10*3/uL (0.0-0.2); Basophils Percent Auto 0.7 % (0-2); Eosinophils Absolute Auto 0.1 X10*3/uL (0.0-0.4); Eosinophils Percent Auto 1.9 % (0-4); Hematocrit 37.1 % (37.0-47.0); Hemoglobin 12.2 g/dl (12.0-16.0); Imm Gran Abs Auto 0.02 X10*3/uL (0.00-0.03); Imm Gran Pct Auto 0.3 % (0.0-0.4); Lymphocytes Absolute Auto 2.2 X10*3/uL (1.2-4.9); Lymphocytes Percent Auto 29.7 % (20-40); Mean Corpuscular HGB Conc 32.9 g/dl (31.0-35.0); Mean Corpuscular Hemoglobin 27.7 pg (27.0-33.0); Mean Corpuscular Volume 84.3 fL (80.0-98.0); Mean Platelet Volume 10.4 fL (9.4-12.3); Monocytes Absolute Auto 0.6 X10*3/uL (0.1-1.2); Monocytes Percent Auto 7.7 % (2-11); Neutrophils Absolute Auto 4.4 x10*3/uL (2.0-8.3); Neutrophils Percent Auto 59.7 % (45-73); Platelet Count 379 X10*3/uL (160-400); Red Cell Distribution Width 12.1 % (11.0-16.0); White Blood Count 7.3 X10*3/uL (4.8-10.8)
[2023-11-29 16:40] LABS: Uric Acid 3.9 mg/dL (2.4-5.7)
[2023-11-29 16:41] LABS: Alanine Aminotransferase 30 U/L (0-31); Albumin Level 4.2 g/dL (3.5-5.0); Alkaline Phosphatase 98 U/L (39-117); Anion Gap 12 (12-20); Aspartate Amino Transferase 17 U/L (5-31); Bilirubin Total 0.3 mg/dL (0.0-1.0); Blood Urea Nitrogen 15 mg/dL (9-16); C Reactive Protein 5.63 mg/dL (< or = 0.50); Calcium 9.9 mg/dL (8.4-10.2); Carbon Dioxide 26 mmol/L (22-29); Chloride 105 mmol/L (96-108); Creatinine Clr Calc Pharmacy 80.5; Estimated Glomerular Filt Rate > 60; Glucose Random 97 mg/dL (60-115); Potassium 4.2 mmol/L (3.3-5.1); Sodium 139 mmol/L (135-145); Total Protein 7.7 g/dL (6.5-8.0)
[2023-11-29 17:11] LABS: Erythrocyte Sedimentation Rate 45 MM/HR (0-20)
--- OUTSIDE RECORDS SUMMARY | 2023-11-29 17:18 | XMS_ITS | Continuity of Care Document ---
Author Organization [facility] Address [address] [place] [address]- Care Team Providers Care Refrigerator Repair Technician Name Role Phone Nnamdi Lowe MD Primary Care Physician En[place] [facility] [place](s): 11/11/20 - 12/11/20 [facility] [address] [place] [address]- [place] Allergies, Adverse Reactions, Alerts Substance Reaction Severity Status penicillins Active Immunizations Given and Recorded Vaccine Date Status Refusal Reason SARS-CoV-2 (COVID-19) mRNA BNT-162b2 vac 08/10/20 Recorded SARS-CoV-2 (COVID-19) mRNA BNT-162b2 vac 07/13/20 Recorded influenza virus vaccine, inactivated 03/30/17 Enoc rded influenza virus vaccine, inactivated 12/24/13 Enoc rded tetanus/diphtheria/pertussis, acel(Tdap) 04/04/07 Recorded Medications betamethasone topical dipropionate, augmented 0.05% cream 0 Refills, Maintenance, 05/29/20 8:46:00 EST, Partial fill upon patient request if the prescriptionis for a schedule II opioid drug. Start Date: 05/29/20 Status: Ordered drospirenone-ethinyl estradiol 3 mg-0.03 mg oral tablet 0 Refills, Maintenance, 05/29/20 8:46:00 EST, Partial fill upon patient request if the prescriptionis for a schedule II opioid drug. Start Date: 05/29/20 Status: Ordered SUMAtriptan 50 mg oral tablet 0 Refills, Maintenance, 05/29/20 8:47:00 EST, Partial fill upon patient request if the prescriptionis for a schedule II opioid drug. Start Date: 05/29/20 Status: Ordered Tremfya 100 mg/mL subcutaneous solution See Instructions, 100 mg Subcutaneous Infusion, 0 Refills, Maintenance, 12/10/20 9:42:00 EDT, Partial fill upon patient request if the prescription is for a schedule II opioid drug. Start Date: 12/10/20 Status: Ordered Problem List Condition Effective Dates Status Health Status Inform ant Anxiety(Confirmed) Active Cervical disc herniation(Confirmed) Active History of hepatitis C(Confirmed) Active History of substance abuse(Confirmed) Active Psoriasis(Confirmed) Active Social History Social History Type Response Smoking Status Never (less than 100 in lifetime) entered on: 05/09/20 Sex
--- OUTSIDE RECORDS SUMMARY | 2023-11-29 17:18 | XMS_ITS | Continuity of Care Document ---
Author Organization [facility] Address [address] [place] [address]- Care Team Providers Care Arbitrator Name Role Phone Not on Staff, PCP Primary Care Physician Unavail able Encounter [facility] Date(s): 05/09/20 - 05/16/20 [facility] [address] [place] [address]- Encounter Diagnosis Elevated LFTs(Discharge Diagnosis) - 05/09/20 Anxiety(Discharge Diagnosis) - 05/09/20 History of hepatitis C(Discharge Diagnosis) - 05/09/20 Psoriasis(Discharge Diagnosis) - 05/09/20 History of hypothyroidism(Discharge Diagnosis) - 05/09/20 History of cardiac murmur(Discharge Diagnosis) - 05/09/20 History of substance abuse(Discharge Diagnosis) - 05/09/20 Attending Physician: Nnamdi Lowe MD Allergies, Adverse Reactions, Alerts Substance Reaction Severity Status penicillins Active Problem List Condition Effective Dates Status Health Status Inform ant Anxiety(Confirmed) Active Cervical disc herniation(Confirmed) Active History of hepatitis C(Confirmed) Active History of substance abuse(Confirmed) Active Psoriasis(Confirmed) Active Diagnosis Diagnosis Type Effective Dates Health Status Clinical Service Informant Elevated LFTs Discharge Diagnosis 05/09/20 Anxiety Discharge Diagnosis 05/09/20 History of hepatitis C Discharge Diagnosis 05/09/20 Psoriasis Discharge Diagnosis 05/09/20 History of hypothyroidism Discharge Diagnosis 05/09/20 History of cardiac murmur Discharge Diagnosis 05/09/20 History of substance abuse Discharge Diagnosis 05/09/20 Vital Signs Most recent to oldest [Reference Range]: 1 2 Height 160 cm (05/09/20 8:13 AM) 160 cm (05/09/20 8:05 AM) Social History Social History Type Response Smoking Status Never (less than 100 in lifetime) entered on: 05/09/20 Sex
--- OUTSIDE RECORDS SUMMARY | 2023-11-29 17:18 | XMS_ITS | Continuity of Care Document ---
Author Organization [facility] Address [address] [place] [address]- Care Team Providers Care Milker Machine Name Role Phone Nnamdi Lowe MD Primary Care Physician Encounter [facility] [place] Date(s): 08/11/20 - 09/10/20 [facility] [address] [place] [address]- Allergies, Adverse Reactions, Alerts Substance Reaction Severity [...] opioid drug. Start Date: 05/29/20 Status: Ordered Problem List Condition Effective Dates Status Health Status Inform ant Anxiety(Confirmed) Active Cervical disc herniation(Confirmed) Active History of hepatitis C(Confirmed) Active History of substance abuse(Confirmed) Active Psoriasis(Confirmed) Active Social History Social History Type Response Smoking Status Never (less than 100 in lifetime) entered on: 05/09/20 Sex
--- OUTSIDE RECORDS SUMMARY | 2023-11-29 17:18 | XMS_ITS | Continuity of Care Document ---
Author Organization [facility] Address [address] [place] [address]- Care Team Providers Care Temporary Staff Accountant Name Role Phone Nnamdi Lowe MD Primary Care Physician Encounter [facility] [place] Date(s): 12/15/21 - 04/14/22 [facility] [address] [place] [address]- Attending Physician: Pollo Neal MD Admitting Physician: Pollo Neal MD Referring Physician: Nnamdi Lowe MD Allergies, Adverse Reactions, [...] Date: 12/10/20 Status: Ordered Problem List Condition Confirmation Course Effective Dates Status Health St atus Informant Anxiety Confirmed Active Cervical disc herniation Confirmed Active History of hepatitis C Confirmed Active History of substance abuse Confirmed Active Psoriasis Confirmed Active Social History Social History Type Response Smoking Status Never (less than 100 in lifetime) entered on: 05/09/20 Sex Patient Care team information Care Team Personnel Name: Nnamdi Lowe MD Position: [facility] Primary Care Physician Member Role: PCP Address: Address: [address] [place] [address]- Name: Jim Blum RN Position: [facility] RN Member Role: Primary Care Nurse Care Team Related Persons Name: XOCHITL BARRETT Address: home [address] [address] Name: VERENA MERCER Address: home [address] [place] [address]
--- OUTSIDE RECORDS SUMMARY | 2023-11-29 17:18 | XMS_ITS | Continuity of Care Document ---
Author Organization [facility] Address [address] [place] [address]- Care Team Providers Care Blast Setter Name Role Phone Nnamdi Lowe MD Primary Care Physician En[place] [facility] [place] Date(s): 07/21/20 - 08/20/20 [facility] [address] [place] [address]- Allergies, Adverse Reactions, Alerts Substance Reaction Severity [...]
--- OUTSIDE RECORDS SUMMARY | 2023-11-29 17:18 | XMS_ITS | Continuity of Care Document ---
Author Organization [facility] Address [address] [place] [address]- Care Team Providers Care Podiatric Assistant Name Role Phone Nnamdi Lowe MD Primary Care Physician Encounter [facility] [place] Date(s): 05/23/20 - 06/22/20 [facility] [address] [place] [address]- Allergies, Adverse Reactions, Alerts Substance Reaction Severity Status penicillins Active Medications betamethasone topical dipropionate, augmented 0.05% cream [...]
--- OUTSIDE RECORDS SUMMARY | 2023-11-29 17:18 | XMS_ITS | Continuity of Care Document ---
Author Organization [facility] Address [address] [place] [address]- Care Team Providers Care Training Development Specialist Name Role Phone Nnamdi Lowe MD Primary Care Physician Encounter [facility] [place] Date(s): 05/29/20 - 06/28/20 [facility] [address] [place] [address]- Allergies, Adverse Reactions, Alerts Substance Reaction Severity [...]
--- OUTSIDE RECORDS SUMMARY | 2023-11-29 17:18 | XMS_ITS | Continuity of Care Document ---
Author Organization [facility] Address [address] [place] [address]- Care Team Providers Care Door To Door Salesman Name Role Phone Nnamdi Lowe MD Primary Care Physician En[place] [facility] [place] Date(s[place] 12/24/20 - 01/23/21 [facility] [address] [place] [address]- [place] Allergies, Adverse Reactions, Alerts Substance Reaction [...]
--- OUTSIDE RECORDS SUMMARY | 2023-11-29 17:18 | XMS_ITS | Continuity of Care Document ---
Author Organization [facility] Address [address] [place] [address]- Care Team Providers Care Rigging Slinger Name Role Phone Nnamdi Lowe MD Primary Care Physician [place] [facility] [place] 12/15/20 - 01/14/21 [facility] [address] [place] [address]- [place] Allergies, Adverse Reactions, Alerts Substance Reaction [...]
--- OUTSIDE RECORDS SUMMARY | 2023-11-29 17:18 | XMS_ITS | Continuity of Care Document ---
Author Organization [facility] Address [address] [place] [address]- Care Team Providers Care Direct Chill Caster Name Role Phone Nnamdi Lowe MD Primary Care Physician Encounter [facility] [place] Date(s): 08/11/20 - 09/10/20 [facility] [address] [place] [address]- Allergies, Adverse Reactions, Alerts Substance Reaction Severity [...]
--- OUTSIDE RECORDS SUMMARY | 2023-11-29 17:18 | XMS_ITS | Continuity of Care Document ---
Author Organization [facility] Address [address] [place] [address]- Care Team Providers Care Artificial Breeding Technician Name Role Phone Nnamdi Lowe MD Primary Care Physician Encounter [facility] [place] Date(s): 12/10/20 - 12/10/[address] [address]- Discharge Disposition: A-D/C Home Attending Physician: Marcia Sharif MD Admitting Physician: Marcia Sharif MD Referring Physician: Marcia Sharif MD Allergies, Adverse Reactions, Alerts Substance Reaction [...] History of substance abuse(Confirmed) Active Psoriasis(Confirmed) Active Vital Signs Most recent to oldest [Reference Range]: 1 Height 160 cm (12/10/20 9:33 AM) Weight 73 kg (12/10/20 9:33 AM) Oxygen Saturation [94-100 %] 100 % (12/10/20 9:31 AM) Pulse Rate [55-90 bpm] 66 bpm (12/10/20 9:31 AM) Blood Pressure [90-138/55-84 mm Hg] 107/ 54mm Hg (12/10/20 9:31 AM) Respiratory Rate [16-30 br/min] 17 br/mi n (12/10/20 9:31 AM) Temperature [96.8-100.4 DegF] 98.7 DegF (12/10/20 9:31 AM) Mode of Delivery (Oxygen) Room air (12/10/20 9:31 AM) Blood pressure sites Arm, left (12/10/20 9:31 AM) Temperature Route Oral (12/10/20 9:31 AM) Dry Weight 73 kg (12/10/20 9:33 AM) Social History Social History Type Response Smoking Status Never (less than 100 in lifetime) entered on: 05/09/20 Sex
--- OUTSIDE RECORDS SUMMARY | 2023-11-29 17:18 | XMS_ITS | Continuity of Care Document ---
Author Organization [facility] Address [address] [place] [address]- Care Team Providers Care Power Distribution Engineer Name Role Phone Nnamdi Lowe MD Primary Care Physician [place] [facility] [place] 09/04/20 [facility] [address] [place] [address]- Allergies, Adverse Reactions, Alerts Substance Reaction Severity [...]
--- OUTSIDE RECORDS SUMMARY | 2023-11-29 17:18 | XMS_ITS | Continuity of Care Document ---
Author Organization [facility] Address [address] [place] [address]- Care Team Providers Care Adzing And Boring Machine Helper Name Role Phone Nnamdi Lowe MD Primary Care Physician Encounter [facility] [place] Date(s): 08/08/20 - 09/07/20 [facility] [address] [place] [address]- Allergies, Adverse Reactions, Alerts Substance Reaction Severity [...]
--- OUTSIDE RECORDS SUMMARY | 2023-11-29 17:18 | XMS_ITS | Continuity of Care Document ---
Author Organization [facility] Address [address] [place] [address]- Care Team Providers Care Criminal Defense Attorney Name Role Phone Nnamdi Lowe MD Primary Care Physician [place] [facility] [place] 05/05/20 - 06/04/20 [facility] [address] [place] [address]- Allergies, Adverse Reactions, Alerts Substance Reaction Severity [...]
--- OUTSIDE RECORDS SUMMARY | 2023-11-29 17:18 | XMS_ITS | Continuity of Care Document ---
Author Organization [facility] Address [address] [place] [address]- Care Team Providers Care Knitting Inspector Name Role Phone Nnamdi Lowe MD Primary Care Physician Encounter [facility] [place] Date(s): 06/17/20 - 07/17/20 [facility] [address] [place] [address]- Allergies, Adverse Reactions, Alerts Substance Reaction Severity [...]
--- OUTSIDE RECORDS SUMMARY | 2023-11-29 17:18 | XMS_ITS | Continuity of Care Document ---
Author Organization [facility] Address [address] [place] [address]- Care Team Providers Care Geology Teacher Name Role Phone Nnamdi Lowe MD Primary Care Physician [place] [facility] [facility] [place]12/20 - 09/11/20 [facility] [address] [place] [address]- Allergies, Adverse Reactions, Alerts Substance Reaction Severity [...]
--- OUTSIDE RECORDS SUMMARY | 2023-11-29 17:18 | XMS_ITS | Continuity of Care Document ---
Author Organization [facility] Address [address] [place] [address]- Care Team Providers Care Cattle Care Worker Name Role Phone Nnamdi Lowe MD Primary Care Physician Encounter [facility] [place] Date(s): 05/29/20 - 06/05/20 [facility] [address] [place] [address]- Encounter Diagnosis History of hepatitis C(Discharge Diagnosis) - 05/29/20 Fatigue(Discharge Diagnosis) - 05/29/20 Psoriasis(Discharge Diagnosis) - 05/29/20 Elevated LFTs(Discharge Diagnosis) - 05/29/20 Attending Physician: Nnamdi Lowe MD Allergies, Adverse [...] Diagnosis Diagnosis Type Effective Dates Health Status Cl inical Service Informant History of hepatitis C Discharge Diagnosis 05/29/20 Fatigue Discharge Diagnosis 05/29/20 Psoriasis Discharge Diagnosis 05/29/20 Elevated LFTs Discharge Diagnosis 05/29/20 Vital Signs Most recent to oldest [Reference Range]: 1 Height 160 cm (05/29/20 8:45 AM) Social History Social History Type Response Smoking Status Never (less than 100 in lifetime) entered on: 05/09/20 Sex
--- OUTSIDE RECORDS SUMMARY | 2023-11-29 17:18 | XMS_ITS | Continuity of Care Document ---
Author Organization [facility] Address [address] [place] [address]- Care Team Providers Care Separator Operator Shellfish Meats Name Role Phone Nnamdi Lowe MD Primary Care Physician En[place] [facility] [place] Date(s): 10/16/20 - 11/15/20 [facility] [address] [place] [address]- Allergies, Adverse Reactions, Alerts Substance Reaction Severity [...]
--- OUTSIDE RECORDS SUMMARY | 2023-11-29 17:18 | XMS_ITS | Continuity of Care Document ---
Author Organization [facility] Address [address] [place] [address]- Care Team Providers Care Veneer Redrier Name Role Phone Nnamdi Lowe MD Primary Care Physician [place] [facility] [place]/05/20 - 09/04/20 [facility] [address] [place] [address]- Allergies, Adverse Reactions, Alerts Substance Reaction Severity [...]
--- OUTSIDE RECORDS SUMMARY | 2023-11-29 17:18 | XMS_ITS | Continuity of Care Document ---
Author Organization [facility] Address [address] [place] [address]- Care Team Providers Care Line Servicer Name Role Phone Nnamdi Lowe MD Primary Care Physician Encounter [facility] [place] Date(s): 08/14/20 - 09/13/20 [facility] [address] [place] [address]- Allergies, Adverse Reactions, Alerts Substance Reaction Severity [...]
--- OUTSIDE RECORDS SUMMARY | 2023-11-29 17:18 | XMS_ITS | Continuity of Care Document ---
Author Organization [facility] Address [address] [place] [address]- Care Team Providers Care Security Systems Specialist Name Role Phone Nnamdi Lowe MD Primary Care Physician Encounter [facility] [place] Date(s): 08/04/20 - 09/03/20 [facility] [address] [place] [address]- Attending Physician: Admtr, Ar8 Admitting Physician: Admtr, Ar8 Referring Physician: Admtr, Ar8 Allergies, Adverse Reactions, Alerts Substance Reaction Severity [...]
--- OUTSIDE RECORDS SUMMARY | 2023-11-29 17:18 | XMS_ITS | Continuity of Care Document ---
Author Organization [facility] Address [address] [place] [address]- Care Team Providers Care Accountant Tax Name Role Phone Nnamdi Lowe MD Primary Care Physician Encounter [facility] [place] Date(s): 03/15/22 - 04/14/22 [facility] [address] [place] [address]- Attending Physician: Admtr, Ar8 Admitting Physician: Admtr, [...] Team Personnel Name: Nnamdi Lowe MD Position: [facility] Primary Care Physician Member Role: PCP Address: Address: [address] [place] [address]- Name: Jim Blum RN Position: [facility] RN Member Role: Primary Care Nurse Care Team Related Persons Name: XOCHITL BARRETT Address: [address] [address] Name: VERENA MERCER Address: home [address] [place] [address]
--- OUTSIDE RECORDS SUMMARY | 2023-11-29 17:18 | XMS_ITS | Continuity of Care Document ---
Author Organization [facility] Address [address] [place] [address]- Care Team Providers Care Cardiac Cath Lab Radiology Technologist Name Role Phone Nnamdi Lowe MD Primary Care Physician Encounter [facility] [place] Date(s): 08/04/21 - 12/02/21 [facility] [address] [place] [address]- Attending Physician: Opal Gambino MD Admitting Physician: Opal Gambino MD Referring Physician: Nnamdi Lowe MD Allergies, [...] 100 in lifetime) entered on: 05/09/20 Sex Care Team Personnel Name: Mynor CRUZ, Nnamdi Anderson Address: [address], [place] [address]
--- OUTSIDE RECORDS SUMMARY | 2023-11-29 17:18 | XMS_ITS | Continuity of Care Document ---
Author Organization [facility] Address [address] [place] [address]- Care Team Providers Care Electrocardiograph Operator Name Role Phone Nnamdi Lowe MD Primary Care Physician [place] [facility] [place] 08/11/20 - 09/10/20 [facility] [address] [place] [address]- Allergies, Adverse Reactions, Alerts Substance Reaction Severity [...]
--- OUTSIDE RECORDS SUMMARY | 2023-11-29 17:18 | XMS_ITS | Continuity of Care Document ---
Author Organization [facility] Address [address] [place] [address]- Care Team Providers Care Looper Operator Name Role Phone Nnamdi Lowe MD Primary Care Physician [place] [facility] [place]24/20 - 07/24/20 [facility] [address] [place] [address]- Attending Physician: Inna Sloan Admitting Physician: AdmInna fernandez Referring Physician: Admtr, Ar8 Allergies, Adverse Reactions, [...]
--- OUTSIDE RECORDS SUMMARY | 2023-11-29 17:18 | XMS_ITS | Continuity of Care Document ---
Author Organization [facility] Address [address] [place] [address]- Care Team Providers Care Teletypesetter Name Role Phone Nnamdi Lowe MD Primary Care Physician [place] [facility] [place] 06/26/20 - 07/26/20 [facility] [address] [place] [address]- Allergies, Adverse Reactions, Alerts Substance Reaction Severity [...]
--- OUTSIDE RECORDS SUMMARY | 2023-11-29 17:18 | XMS_ITS | Continuity of Care Document ---
Author Organization [facility] Address [address] [place] [address]- Care Team Providers Care Unit Operator Name Role Phone Nnamdi Lowe MD Primary Care Physician Encounter [facility] Date(s): 11/23/21 - 12/23/21 [facility] [address] [place] [address]- [place] Allergies, Adverse Reactions, Alerts Substance Reaction [...] Personnel Name: Mynor CRUZ, Nnamdi Anderson Address: [address] [place] [address]
--- OUTSIDE RECORDS SUMMARY | 2023-11-29 17:18 | XMS_ITS | Continuity of Care Document ---
Author Organization [facility] Address [address] [place] [address]- Care Team Providers Care Artificial Candy Maker Name Role Phone Mynor CRUZ, Nnamdi Anderson Primary Care Physician [place] [facility] [place]20 - 12/19/20 [facility] [address] [place] [address]- [place] Allergies, Adverse Reactions, Alerts Substance Reaction [...]
--- OUTSIDE RECORDS SUMMARY | 2023-11-29 17:18 | XMS_ITS | Continuity of Care Document ---
Author Organization [facility] Address [address] [place] [address]- Care Team Providers Care Mortgage Processor Name Role Phone Nnamdi Lowe MD Primary Care Physician En[place] [facility] [place] Date(s): 10/16/20 - 11/15/20 [facility] [address] [place] [address]- Allergies, Adverse Reactions, Alerts Substance Reaction Severity [...]
--- OUTSIDE RECORDS SUMMARY | 2023-11-29 17:18 | XMS_ITS | Continuity of Care Document ---
Author Organization [facility] Address [address] [place] [address]- Care Team Providers Care Senior Ruby Developer Name Role Phone Nnamdi Lowe MD Primary Care Physician Encounter [facility] [place] Date(s): 08/13/20 - 09/12/20 [facility] [address] [place] [address]- Allergies, Adverse Reactions, Alerts Substance Reaction Severity [...]
--- OUTSIDE RECORDS SUMMARY | 2023-11-29 17:18 | XMS_ITS | Continuity of Care Document ---
Author Organization [facility] Address [address] [place] [address]- Care Team Providers Care Softball Core Molder Name Role Phone Nnamdi Lowe MD Primary Care Physician Encounter [facility] [place] Date(s): 06/24/20 - 07/01/20 [facility] [address] [place] [address]- Encounter Diagnosis Psoriasis(Discharge Diagnosis) - 06/24/20 Elevated LFTs(Discharge Diagnosis) - 06/24/20 Attending Physician: Nnamdi Lowe MD Allergies, Adverse [...] Dates Health Status Cl inical Service Informant Psoriasis Discharge Diagnosis 06/24/20 Elevated LFTs Discharge Diagnosis 06/24/20 Vital Signs Most recent to oldest [Reference Range]: 1 2 Height 160 cm (06/24/20 9:39 AM) 160 cm (06/24/20 9:35 AM) Weight 74.2 kg (06/24/20 9:39 AM) Pulse Rate [55-90 bpm] 60 bpm (06/24/20 9:35 AM) Body Mass Index [18.5-24.99] 28.98 *H* (06/24/20 9:39 AM) Blood Pressure [90-138/55-84 mm Hg] 110/ 53mm Hg (06/24/20 9:35 AM) Blood pressure sites Arm, right (06/24/20 9:35 AM) Weight Obtained Via Standing scale (06/24/20 9:39 AM) Social History Social History Type Response Smoking Status Never (less than 100 in lifetime) entered on: 05/09/20 Sex
[2023-11-29 19:06] VITALS: BP 133/59; PULSE 73; RESP 18; TEMP 36.9; O2SAT 98
== END 2023-11-29 19:06 | disposition home or self-care (01) ==
PROVIDERS: Physician Assistant; Emergency Provider Emergency Medicine
DX: M79.645 Pain in left finger(s) (principal); M25.572 Pain in left ankle and joints of left foot; Z79.899 Other long term (current) drug therapy
CPT/HCPCS: 36415; 73130; 80053; 84550; 85025; 85652; 86140; 99282; 99283

== ENCOUNTER 2024-03-28 08:11 | Emergency (ER) | payer OTHER, SELFPAY ==
[2024-03-28 08:13] VITALS: BP 127/58; PULSE 61; RESP 18; TEMP 36.6; O2SAT 100; BMI 29.3
--- NOTE | 2024-03-28 08:32 | ED_ITS ---
HPI - Wound/Laceration General Chief Complaint: Wound/Laceration Stated Complaint: sliced leg Time Seen by Provider: 03/28/24 08:28 Source: patient Mode of arrival: ambulatory Limitations: no limitations History of Present Illness HPI narrative: Patient is a 43-year-old female presents emergency department for evaluation. She reports that this morning she was breaking down some boxes when she accidentally kneeled on to a pair of scissors resulting in a laceration to the superior medial left knee proximally 1.5 cm. No active bleeding. She denies use of anticoagulants or known coagulation disorders. She reports that she is on biologics. Unaware of date of last tetanus vaccination. Full range of motion to the knee. Related Data Previous Rx's ?Medication ?Instructions ?Recorded [id number] 1 cap PO Q6H PRN headache #20 caps 01/08/20 50 mg-300 mg-40 mg capsule (Fioricet) sumatriptan succinate 50 mg tablet See Rx Instructions PO .COMPLEX 01/08/20 (Imitrex) #10 tabs oxycodone 5 mg tablet 5 mg PO Q8H PRN pain #10 tabs 06/28/20 ibuprofen 600 mg tablet 600 mg PO Q6H PRN pain #60 tabs 06/29/20 cyclobenzaprine 5 mg tablet 5 mg PO TID PRN muscle spasm 7 02/28/23 days #21 tabs prednisone 20 mg tablet 20 mg PO DAILY 7 days #7 tabs 02/28/23 oxycodone 5 mg tablet 5 mg PO Q8H PRN severe pain (scale 11/29/23 score 7-10) #6 tabs prednisone 10 mg tablets in a dose See Taper PO DAILY #30 ea 11/29/23 pack cephalexin 500 mg capsule 500 mg PO QID #28 caps 03/28/24 Allergies Allergy/AdvReac Type Severity Reaction Status Date / Time Penicillins [PENICILLINS] Allergy Severe SHORTNESS Verified 03/28/24 08:16 OF BREATH Amoxicillin Allergy Unknown Shortness Uncoded 03/28/24 08:16 of Breath Penicillin Allergy Unknown Shortness Uncoded 03/28/24 08:16 of Breath Review of Systems Review of Systems: Yes all other systems are reviewed and are negative PMFSH Past Medical History Attestation statement: The following information was validated with the patient. Source: old records reviewed Medical History Left elbow fracture Right wrist injury Psoriasiform dermatitis Patient denies significant medical history Social History Social History Alcohol intake: current Alcohol intake frequency: a few times a month Substance Use Type: Marijuana Physical Exam Vital Signs: Vital Signs: Last Vital Signs Temp 97.8 F 03/28/24 08:13 Pulse 61 03/28/24 08:13 Resp 18 03/28/24 08:13 BP 127/58 L 03/28/24 08:13 Pulse Ox 100 03/28/24 08:13 O2 Del Method Room Air 03/28/24 08:13 BMI result Body Mass Index 29.3 Appearance: Alert.?Oriented to person, place and time. No acute distress.?Normal affect.?? CVS: Heart sounds normal. Normal heart rate and rhythm.? Pulses normal.?? Respiratory: No respiratory distress.? Lung sounds clear to auscultation bilaterally?? Skin: Skin warm and dry.? Normal skin color.? Laceration to the left superior medial knee approximately 1.5 cm, serial 2.5 cm depth. No surrounding ecchymosis or swelling. No purulence. Full range of motion to the knee.?? Extremities: No lower extremity edema.? No calf ttp? Neuro: Moves all extremities spontaneously. Sensation intact bilaterally. C Ambulates with normal steady gait. Medical Decision Making Medical Decision Making MDM Narrative: Patient is a 43-year-old female who presents emergency department for evaluation of accidental laceration of the left knee as per HPI. Tetanus vaccination updated as date of last vaccination is unclear. Given her immunosuppression with biologics, will provide a short course of oral antibiotics. Wound was repaired under aseptic technique as per procedural portion of this note with suture. Discussed indication for improvement hemostasis of wound and healing time. Patient acknowledged understanding. Wound with sterile saline irrigation draped in usual fashion with the use of chlorhexidine. Closure with simple intermittent sutures using 4-0 nylon. Patient tolerated well, no complications. Discussed reasons to return including fever or chills, erythema, swelling, pain, purulence or odor from the wound. Advised to return for suture removal in 8-10 days. Differential Diagnosis Differential Diagnoses: The differential diagnosis associated with the presentation includes (Laceration, tetanus exposure, lower suspicion for patellar tendon involvement, full range of motion.) Independent Historian Clinical information obtained from an independent historian. History obtained from or confirmed by: Spouse External Record Review External record reviewed: Outpatient record Prescription Management I considered prescription management with: Pain Medication (Acetaminophen/ibuprofen) and Antibiotic Procedures Laceration Laceration 1: Site: lower extremity Side (If applicable): left Size (cm): 1.5 Description: linear Depth: simple, single layer Local Anesthetic: lidocaine 1% Amount of anesthesia used (mL): 5 Pre-repair: wound explored, irrigated extensively and deep structures intact Skin layer closed with: nylon Size (cm): 5-0 Number of sutures: 4 Technique: simple, interrupted Discharge Plan Discharge Clinical Impression: Laceration Patient Disposition: Home, Self-Care Instructions: Laceration (ED) Additional Instructions: You may clean the area gently slowly with warm water and mild non scented soap over the next 2 days, dry the area afterwards, otherwise should remain dry until removed. Avoid prolonged soaking in water such as swimming, soaking in the bath. Sutures will need to be removed in 8-10 days, you may return back to emergency department or follow-up with your primary care doctor for removal Tetanus vaccine was updated today. Given your immunosuppression with biologics I recommend that you complete a short course of oral antibiotics to prevent any wound infection. Prescription for cephalexin has been sent to the pharmacy. Return with any new or worsening symptoms or concerns such as increasing pain, redness, swelling, pus-like discharge, fevers or chills. Prescriptions: New cephalexin 500 mg capsule 500 mg PO QID Qty: 28 0RF No Action oxycodone 5 mg tablet 5 mg PO Q8H PRN (Reason: pain) Qty: 10 0RF ibuprofen 600 mg tablet 600 mg PO Q6H PRN (Reason: pain) Qty: 60 0RF sumatriptan succinate [Imitrex] 50 mg tablet See Rx Instructions .ROUTE .COMPLEX Qty: 10 0RF Rx Instructions: take 1 tab at onset of headache; if no relief may repeat 1 tab after at least 2 hrs; max = 2 tabs/24 hr [id number] [Fioricet] 50-300-40 mg capsule 1 cap PO Q6H PRN (Reason: headache) Qty: 20 0RF prednisone 10 mg tablets,dose pack See Taper PO DAILY Qty: 30 0RF Taper: Prednisone 40 mg daily for 3 Days and 0 Hour 30 mg daily for 3 Days and 0 Hour 20 mg daily for 3 Days and 0 Hour 10 mg daily for 3 Days and 0 Hour Rx Instructions: 40 mg Daily x3 days, 30 mg daily x3 days, 20 mg daily x3 days, 10 mg daily x3 days oxycodone 5 mg tablet 5 mg PO Q8H PRN (Reason: severe pain (scale score 7-10)) Qty: 6 0RF Rx Instructions: Partial Fill upon patient request. prednisone 20 mg tablet 20 mg PO DAILY 7 Days Qty: 7 0RF cyclobenzaprine 5 mg tablet 5 mg PO TID PRN (Reason: muscle spasm) 7 Days Qty: 21 0RF Referrals: Physician,None [Primary Care Provider] - Print Language: Turkmen
[2024-03-28] MEDS: Diphth,Pertus(ACell),Tet Adult 0.5 ML SYRINGE IM (08:58)
[2024-03-28] MEDS: Lidocaine HCl 1 % MPF 5 ML VIAL SUBCUT (08:59)
--- NOTE | 2024-03-28 09:00 | PC.NURSE ---
pt medicated per order
[2024-03-28 09:46] VITALS: BP 121/63; PULSE 67; RESP 16; TEMP 36.6; O2SAT 98
== END 2024-03-28 09:47 | disposition home or self-care (01) ==
PROVIDERS: Emergency Provider Emergency Medicine
DX: S81.012A Laceration without foreign body, left knee, initial encounter (principal); M79.605 Pain in left leg; W27.2XXA Contact with scissors, initial encounter; Y93.89 Activity, other specified; Y92.89 Other specified places as the place of occurrence of the external cause; Y99.8 Other external cause status; Z23 Encounter for immunization
CPT/HCPCS: 12001; 90471; 90715; 99282; 99284; J2003

== ENCOUNTER 2024-06-04 14:53 | Outpatient (REF) | payer OTHER, SELFPAY ==
[2024-06-07 16:08] LABS: TS Negative Control Passed; TS Panel A 0; TS Panel B 0; TS Positive Control Passed; TSpotTB Negative (Negative)
== END 2024-06-04 14:54 | disposition home or self-care (01) ==
LOC: HO.LAB 14:53
PROVIDERS: Visit Provider Physician Assistant
DX: Z79.899 Other long term (current) drug therapy (principal)
CPT/HCPCS: 36415; 86481